=== PATIENT | female | born 1945 | race Hispanic/Latino ===

== ENCOUNTER 2019-04-27 18:47 | Emergency (ER) | payer MEDICARE ==
[~2019-04-27 18:47] MED LIST: LISI1TAB11 PO
[2019-04-27] MEDS ORDERED: SODIUM CHLORIDE 0.9% 1000ML 1,000 ML IV ONE ×2 (19:31→20:21)
[2019-04-27 19:53] LABS: BASOPHILS % (AUTO) 0.5 % (0.0-5.0); EOSINOPHILS % (AUTO) 1.9 % (0.0-8.0); HEMATOCRIT 40.7 % (36-48); LYMPHOCYTES % (AUTO) 20.6 % (21.0-51.0); MEAN CORPUSCULAR HEMOGLOBIN 30.9 pg (27.0-33.0); MEAN CORPUSCULAR HGB CONC 34.2 g/dL (32.0-36.0); MEAN CORPUSCULAR VOLUME 90.3 fL (79-99); MONOCYTES % (AUTO) 7.9 % (3.0-13.0); NEUTROPHILS % (AUTO) 69.1 % (40.0-77.0); PLATELET COUNT (AUTO) 162 K/uL (130-400); RED BLOOD CELL COUNT(AUTO) 4.51 MIL/uL (4.00-5.50); RED CELL DISTRIBUTION WIDTH 13.6 % (11.0-15.5); WHITE BLOOD COUNT (AUTO) 6.2 K/uL (4.8-10.8)
[2019-04-27] MEDS ORDERED: ACETAMINOPHEN 325 MG TAB ONE (19:54)
[2019-04-27 20:00] LABS: CREATININE 1.5 mg/dL (0.5-1.5); INR 0.94 (0.85-1.15); PARTIAL THROMBOPLASTIN TIME 24.5 SEC (26.3-35.5); POTASSIUM 3.7 mmol/L (3.5-5.1); PROTHROMBIN TIME 9.9 SEC (9.6-11.6)
[2019-04-27 20:05] LABS: ALBUMIN 3.9 g/dL (3.5-5.0); BILIRUBIN,TOTAL 0.6 mg/dL (0.2-1.0); TOTAL PROTEIN, SERUM 7.2 g/dL (6.0-8.3)
== END 2019-04-27 23:36 | disposition home or self-care (01) ==
LOC: EDH 18:47
DX: R55 Syncope and collapse (principal); I10 Essential (primary) hypertension; M81.0 Age-related osteoporosis without current pathological fracture; F41.9 Anxiety disorder, unspecified
CPT/HCPCS: 36415; 80053; 82550; 84484; 85025; 85610; 85730; 93005; 96360; 96361; 99285; J7030 ×2

== ENCOUNTER 2019-08-09 20:39 | Emergency (ER) | payer MEDICARE ==
[~2019-08-09 20:39] MED LIST changes: -LISI1TAB11 PO; +LISI1TAB28 PO
[2019-08-09 21:06] LABS: APPEARANCE,URINE Clear (CLEAR); BILIRUBIN,URINE Negative (NEGATIVE); COLOR,URINE Yellow (YELLOW); GLUCOSE, URINE (UA) Negative (NEGATIVE); KETONES,URINE Negative (NEGATIVE); LEUKOCYTE ESTERASE ,URINE Negative (NEGATIVE); NITRATE,URINE Negative (NEGATIVE); OCCULT BLOOD,URINE Negative (NEGATIVE); PROTEIN,URINE POS 1+ mg/dL (NEGATIVE)
[2019-08-09 21:23] LABS: BASOPHILS % (AUTO) 0.6 % (0.0-5.0); HEMATOCRIT 41.9 % (36-48); LYMPHOCYTES % (AUTO) 21.9 % (21.0-51.0); MEAN CORPUSCULAR HEMOGLOBIN 30.5 pg (27.0-33.0); MEAN CORPUSCULAR HGB CONC 34.2 g/dL (32.0-36.0); MEAN CORPUSCULAR VOLUME 89.2 fL (79-99); MONOCYTES % (AUTO) 6.4 % (3.0-13.0); NEUTROPHILS % (AUTO) 69.1 % (40.0-77.0); PLATELET COUNT (AUTO) 171 K/uL (130-400); RED CELL DISTRIBUTION WIDTH 13.9 % (11.0-15.5); WHITE BLOOD COUNT (AUTO) 7.7 K/uL (4.8-10.8)
[2019-08-09] MEDS ORDERED: SODIUM CHLORIDE 0.9% 1000ML 2,000 ML IV ONE (21:39)
[2019-08-09] MEDS ORDERED: MORPHINE SULFATE 4 MG/1ML SYG ONE ×2 (21:40→22:17)
[2019-08-09] MEDS ORDERED: ONDANSETRON HCL 4 MG/2 ML VIAL ONE (21:40)
[2019-08-09 21:44] LABS: CREATININE 0.9 mg/dL (0.5-1.5)
[2019-08-09 21:44] LABS: BACTERIA,URINE Few /HPF (None Seen); RBC,URINE 0-1 /HPF (0-1); SQUAMOUS EPITHELIAL CELL,UR Few /HPF (0-2); WBC,URINE 0-1 /HPF (0-1)
[2019-08-09 21:48] LABS: ALBUMIN 3.8 g/dL (3.5-5.0); BILIRUBIN,TOTAL 0.4 mg/dL (0.2-1.0); TOTAL PROTEIN, SERUM 7.6 g/dL (6.0-8.3)
[2019-08-10] MEDS ORDERED: ONDANSETRON HCL 4 MG/2 ML VIAL ONE (00:08)
[2019-08-10] MEDS ORDERED: MORPHINE SULFATE 2 MG/ML 1ML SYG ONE (00:08)
== END 2019-08-10 00:44 | disposition home or self-care (01) ==
LOC: EDH 20:39
DX: K80.70 Calculus of gallbladder and bile duct without cholecystitis without obstruction (principal); I10 Essential (primary) hypertension
CPT/HCPCS: 36415; 71045; 74176; 76705; 80053; 81001; 83690; 84484; 85025; 93005; 96374; 96375; 96376 ×2; 99285; J2270 ×2; J2405 ×2; J7030

== ENCOUNTER 2019-08-14 12:23 | Inpatient (IN) | payer MEDICARE ==
[~2019-08-14] VITALS: Ht 152.4 cm; Wt 78.0 kg
[2019-08-14 13:17] LABS: CARBON DIOXIDE 25 mmol/L (21-32); CHLORIDE 101 mmol/L (101-111); GLOMERULAR FILTR. RATE CALC 58 mL/min (>60); GLUCOSE,RANDOM 119 mg/dL (70-105); POTASSIUM 3.5 mmol/L (3.5-5.1); SODIUM SERUM 135 mmol/L (136-145); UREA NITROGEN, BLOOD 22 mg/dL (7-18)
[2019-08-14 13:18] LABS: BASOPHILS % (AUTO) 0.2 % (0.0-5.0); EOSINOPHILS % (AUTO) 0.2 % (0.0-8.0); HEMATOCRIT 35.5 % (36-48); LYMPHOCYTES % (AUTO) 1.4 % (21.0-51.0); MEAN CORPUSCULAR HEMOGLOBIN 30.2 pg (27.0-33.0); MEAN CORPUSCULAR HGB CONC 33.5 g/dL (32.0-36.0); MEAN CORPUSCULAR VOLUME 90.3 fL (79-99); MONOCYTES % (AUTO) 5.4 % (3.0-13.0); NEUTROPHILS % (AUTO) 92.8 % (40.0-77.0); PLATELET COUNT (AUTO) 161 K/uL (130-400); RED BLOOD CELL COUNT(AUTO) 3.93 MIL/uL (4.00-5.50); RED CELL DISTRIBUTION WIDTH 13.5 % (11.0-15.5)
[2019-08-14 13:21] LABS: INR 0.95 (0.85-1.15); PARTIAL THROMBOPLASTIN TIME 28.3 SEC (26.3-35.5)
[2019-08-14 13:36] LABS: ALANINE AMINOTRANSFERASE 58 U/L (12-78); ALBUMIN 2.2 g/dL (3.5-5.0); AMYLASE 20 U/L (25-115); ASPARTATE AMINOTRANSFERASE 43 U/L (10-37); BILIRUBIN,TOTAL 2.5 mg/dL (0.2-1.0); CREATINE KINASE, TOTAL 20 U/L (21-232); TOTAL PROTEIN, SERUM 6.4 g/dL (6.0-8.3)
[2019-08-14 13:45] LABS: LIPASE < 50 U/L (114-286)
[2019-08-14 13:46] LABS: APPEARANCE,URINE Clear (CLEAR); BILIRUBIN,URINE Negative (NEGATIVE); COLOR,URINE Dark Yellow (YELLOW); GLUCOSE, URINE (UA) Negative (NEGATIVE); KETONES,URINE Negative (NEGATIVE); LEUKOCYTE ESTERASE ,URINE Negative (NEGATIVE); NITRATE,URINE Negative (NEGATIVE); OCCULT BLOOD,URINE Negative (NEGATIVE); PROTEIN,URINE POS 2+ mg/dL (NEGATIVE)
[2019-08-14 14:06] LABS: BACTERIA,URINE Few /HPF (None Seen); RBC,URINE 0-1 /HPF (0-1); WBC,URINE 0-1 /HPF (0-1)
[2019-08-14 14:07] LABS: AMORPHOUS SEDIMENT,UR Moderate /LPF (None Seen)
[2019-08-14] MEDS ORDERED: ZOSYN 3.375GM+NS 50ML 50 ML IV ONE (15:42)
[2019-08-14] MEDS ORDERED: ASPIRIN 325 MG TABLET ONE (15:42)
[2019-08-14] MEDS ORDERED: NITROGLYCERIN 1GM/1 INCH PACKET TD ONE (15:43)
[2019-08-14] MEDS ORDERED: METRONIDAZOLE 500MG/100ML BAG 100 ML ONE (15:43)
[2019-08-14] MEDS ORDERED: SODIUM CHLORIDE 0.9% 500ML 500 ML IV ONE (15:47)
[2019-08-14] MEDS: SODIUM CHLORIDE 0.9% 1000ML 1,000 ML IV SCH (19:37)
[2019-08-14] MEDS ORDERED: LACTULOSE 20 GM/30 ML UDCUP PO PRN (19:45)
[2019-08-14] MEDS ORDERED: ONDANSETRON HCL 4 MG/2 ML VIAL IV PRN (19:45)
[2019-08-14] MEDS ORDERED: ACETAMINOPHEN 325 MG TAB PO PRN (19:45)
[2019-08-14] MEDS ORDERED: CEFTRIAXONE SODIUM 1 GM IV SCH (19:45)
[2019-08-14] MEDS: ATORVASTATIN CALCIUM 20 MG TABLET PO SCH (21:00)
[2019-08-14] MEDS: METOPROLOL TARTRATE 25 MG TAB PO SCH (21:00)
[2019-08-14] MEDS: FAMOTIDINE/PF 20 MG/2 ML VIAL IV SCH (21:00)
[2019-08-14] MEDS: ZOSYN 3.375GM+NS 50ML 50 ML IV SCH (21:00)
[2019-08-14] MEDS ORDERED: HYDRALAZINE HCL 20 MG/ML VIAL IV PRN (21:00)
[2019-08-14 22:15] LABS: HEMOGLOBIN A1C 5.8 % (4.0-6.0)
[2019-08-14 22:22] LABS: CHOLESTEROL 87 mg/dL (<200); HDL CHOLESTEROL 74 mg/dL (35-85); LDL DIRECT 48 mg/dL (0-99); TRIGLYCERIDES 107 mg/dL (30-200)
[2019-08-14 22:26] LABS: TROPONIN I 0.51 ng/mL (0.00-0.06)
[2019-08-15] MEDS ORDERED: METOPROLOL TARTRATE 25 MG TAB ONE (00:04)
[2019-08-15] MEDS ORDERED: CEFTRIAXONE SODIUM 1 GM ONE (00:04)
[2019-08-15] MEDS ORDERED: ATORVASTATIN CALCIUM 20 MG TABLET ONE (00:04)
[2019-08-15] MEDS ORDERED: SODIUM CHLORIDE 0.9% 50 ML IV ONE (00:05)
[2019-08-15] MEDS ORDERED: SODIUM CHLORIDE 0.9% 1000ML 1,000 ML IV ONE (00:05)
[2019-08-15 00:30] VITALS: BP 117/66
[2019-08-15] MEDS ORDERED: TYL3B PO (01:20)
[2019-08-15] MEDS ORDERED: ONDA4TAB10 PO (01:20)
--- NOTE | 2019-08-15 01:57 | NUR ---
FLU/ PNEUMONIA VACCINE PATIENT REFUSES VACCINE AT THIS TIME. SAYS SHE WILL GET THE VACCINES WITH HER PRIMARY MD AFTER DISCHARGE.
[2019-08-15 02:59] LABS: TROPONIN I 0.28 ng/mL (0.00-0.06)
[2019-08-15 04:50] VITALS: BP 129/66
[2019-08-15] MEDS: ZOSYN 3.375GM+NS 50ML 50 ML IV SCH ×3 (05:08→20:59)
[2019-08-15] MEDS: SODIUM CHLORIDE 0.9% 1000ML 1,000 ML IV SCH ×2 (05:37→15:21)
[2019-08-15 08:22] VITALS: BP 112/50
[2019-08-15] MEDS ORDERED: ASPIRIN 325 MG TABLET PO SCH (09:00)
[2019-08-15] MEDS: ENOXAPARIN SODIUM 30 MG/0.3 ML SQ SCH (09:00)
[2019-08-15] MEDS: FAMOTIDINE/PF 20 MG/2 ML VIAL IV SCH ×2 (09:38→21:00)
[2019-08-15] MEDS: METOPROLOL TARTRATE 25 MG TAB PO SCH ×2 (09:38→21:00)
--- NOTE | 2019-08-15 10:30 | NUR ---
Nutrition Intervention: Nutrition consult due to poor appetite. Pt. not in room during RD visit- out for procedure. Pt. NPO for MRCP. Labs reviewed(Alb 2.2, T. Bili 2.5, Alk Phos 253). LBM: 08/14/19. SR-felipa Pardo. BMI: 28.4, overweight. Recommendations: 1) When medically feasible, rec. Clear Liquids and advance as tolerated to Heart Healthy GI Soft [place] diet. 2) Continue to monitor pt's nutritional status and diet advancement. 3) Consult RD as nutrition concerns arise. Addendum: 08/15/19 at [address] Amended: Links added.
[2019-08-15 12:00] VITALS: BP 125/76
--- NOTE | 2019-08-15 15:45 | NUR ---
DCP CM met with pt discussed dc plans. Pt is independent prior to admission, lives at home w/spouse. Has a walker. Pt has a walker, shower chair, cane. Denies any equipments/services. Feels safe to go back home, spouse and daughter able to assist with transportation and needs as necessary. DC plan to home once stable. CM to cont to follow up. Addendum: 08/15/19 at 1546 by GABE STANLEY LVN CM Amended: Links added.
[2019-08-15 16:29] VITALS: BP 147/69
[2019-08-15 20:00] VITALS: BP 141/68
[2019-08-15] MEDS: ATORVASTATIN CALCIUM 20 MG TABLET PO SCH (21:00)
[2019-08-16] VITALS (25 sets, daily range): BP systolic 106–159; BP diastolic 56–77
[2019-08-16] MEDS: SODIUM CHLORIDE 0.9% 1000ML 1,000 ML IV SCH ×3 (03:47→21:24)
[2019-08-16] MEDS: ZOSYN 3.375GM+NS 50ML 50 ML IV SCH (04:31)
[2019-08-16 06:08] LABS: BASOPHILS % (AUTO) 0.4 % (0.0-5.0); EOSINOPHILS % (AUTO) 0.9 % (0.0-8.0); HEMATOCRIT 31.4 % (36-48); LYMPHOCYTES % (AUTO) 4.9 % (21.0-51.0); MEAN CORPUSCULAR HEMOGLOBIN 30.1 pg (27.0-33.0); MEAN CORPUSCULAR HGB CONC 33.7 g/dL (32.0-36.0); MEAN CORPUSCULAR VOLUME 89.4 fL (79-99); MONOCYTES % (AUTO) 11.8 % (3.0-13.0); PLATELET COUNT (AUTO) 191 K/uL (130-400); RED BLOOD CELL COUNT(AUTO) 3.51 MIL/uL (4.00-5.50); RED CELL DISTRIBUTION WIDTH 14.2 % (11.0-15.5); WHITE BLOOD COUNT (AUTO) 10.4 K/uL (4.8-10.8)
[2019-08-16 06:26] LABS: ALBUMIN 1.7 g/dL (3.5-5.0); BILIRUBIN,TOTAL 2.3 mg/dL (0.2-1.0); POTASSIUM 3.2 mmol/L (3.5-5.1); TOTAL PROTEIN, SERUM 5.6 g/dL (6.0-8.3)
[2019-08-16] MEDS ORDERED: IOHEXOL-350 50ML VIAL IV ONE (07:11)
[2019-08-16] MEDS ORDERED: SUCCINYLCHOLINE 200MG/10ML SYR ONE (07:25)
[2019-08-16] MEDS ORDERED: SIMETHICONE 40 MG/0.6 ML ML ONE (07:42)
[2019-08-16] MEDS ORDERED: ESMOLOL HCL 10 MG/ML 10 ML VIAL ONE (07:59)
[2019-08-16] MEDS ORDERED: GLUCAGON 1MG KIT 1 MG ML ONE (07:59)
[2019-08-16] MEDS ORDERED: INDOMETHACIN 50 MG SUPP.RECT RC SCH (08:45)
[2019-08-16] MEDS: ENOXAPARIN SODIUM 30 MG/0.3 ML SQ SCH (09:00)
--- NOTE | 2019-08-16 10:54 | NUR ---
INFORMED DR. JOHNSON FINDINGS FROM ERCP. NEW ORDERS TO SCHEDULE CHOLECYTOMY FOR SUNDAY BY DR. NARAYAN. FAMILY INFORMED. CHARGE NURSE WAS INFORMED PER FAMILY REQUEST TO SPEAK WITH THEM.
[2019-08-16] MEDS: CEFTRIAXONE SODIUM 2 GM VIAL IVP SCH (12:47)
[2019-08-16] MEDS: METOPROLOL TARTRATE 25 MG TAB PO SCH ×2 (12:48→21:26)
[2019-08-16] MEDS: FAMOTIDINE/PF 20 MG/2 ML VIAL IV SCH ×2 (12:48→21:26)
[2019-08-16] MEDS ORDERED: LIDOCAINE HCL-MPF 1% 2ML VIAL IJ PRN (19:30)
[2019-08-16] MEDS ORDERED: POTASSIUM CHLORIDE 10% ELIXIR 20 MEQ/15 ML UDCUP PO PRN (19:30)
[2019-08-16] MEDS ORDERED: POTASSIUM CHLORIDE 20 MEQ ERTAB PO PRN (19:30)
[2019-08-16] MEDS: POTASSIUM CHLORIDE 20MEQ/100ML 100 ML IV PRN (21:24)
[2019-08-16] MEDS: ATORVASTATIN CALCIUM 20 MG TABLET PO SCH (21:26)
[2019-08-17 03:35] VITALS: BP 123/62
[2019-08-17] MEDS: SODIUM CHLORIDE 0.9% 1000ML 1,000 ML IV SCH ×2 (06:08→17:23)
[2019-08-17 06:18] LABS: BASOPHILS % (AUTO) 0.3 % (0.0-5.0); HEMATOCRIT 31.8 % (36-48); LYMPHOCYTES % (AUTO) 4.9 % (21.0-51.0); MEAN CORPUSCULAR HEMOGLOBIN 30.2 pg (27.0-33.0); MEAN CORPUSCULAR HGB CONC 33.9 g/dL (32.0-36.0); MEAN CORPUSCULAR VOLUME 89.3 fL (79-99); MONOCYTES % (AUTO) 11.3 % (3.0-13.0); NEUTROPHILS % (AUTO) 82.5 % (40.0-77.0); PLATELET COUNT (AUTO) 239 K/uL (130-400); RED BLOOD CELL COUNT(AUTO) 3.57 MIL/uL (4.00-5.50); RED CELL DISTRIBUTION WIDTH 14.3 % (11.0-15.5); WHITE BLOOD COUNT (AUTO) 9.4 K/uL (4.8-10.8)
[2019-08-17 06:36] LABS: ALBUMIN 1.7 g/dL (3.5-5.0); BILIRUBIN,TOTAL 1.5 mg/dL (0.2-1.0); CREATININE 0.9 mg/dL (0.5-1.5); POTASSIUM 3.6 mmol/L (3.5-5.1); TOTAL PROTEIN, SERUM 5.7 g/dL (6.0-8.3)
[2019-08-17 07:30] VITALS: BP 134/54
--- NOTE | 2019-08-17 07:30 | NUR ---
CRITICAL HATHAWAY CUT PRESS OPERATOR AWARE OF ALKALINE PHOSPHATASE CRITICAL VALUE OF 674. NO NEW ORDERS RECEIVED.
[2019-08-17] MEDS: METOPROLOL TARTRATE 25 MG TAB PO SCH ×2 (10:18→23:10)
[2019-08-17] MEDS: FAMOTIDINE/PF 20 MG/2 ML VIAL IV SCH ×2 (10:18→23:10)
[2019-08-17] MEDS: CEFTRIAXONE SODIUM 2 GM VIAL IVP SCH (10:18)
[2019-08-17 11:00] VITALS: BP 146/72
--- NOTE | 2019-08-17 11:59 | NUR ---
DR ELIZABETH DALTON. WAITING PROTOCOL OFFICER BACK.
--- NOTE | 2019-08-17 12:20 | NUR ---
DR JOHNSON CALLED BACK. AWARE OF CRITICAL VALUE. NO NEW ORDERS RECEIVED.
[2019-08-17 16:00] VITALS: BP 139/58
[2019-08-17 19:10] VITALS: BP 147/87
[2019-08-17 23:05] VITALS: BP 157/80
[2019-08-17] MEDS: ATORVASTATIN CALCIUM 20 MG TABLET PO SCH (23:10)
[2019-08-18] VITALS (19 sets, daily range): BP systolic 98–192; BP diastolic 50–78
[2019-08-18] MEDS: SODIUM CHLORIDE 0.9% 1000ML 1,000 ML IV SCH ×2 (05:44→23:37)
[2019-08-18 05:59] LABS: BASOPHILS % (AUTO) 0.5 % (0.0-5.0); EOSINOPHILS % (AUTO) 1.1 % (0.0-8.0); LYMPHOCYTES % (AUTO) 7.5 % (21.0-51.0); MEAN CORPUSCULAR HEMOGLOBIN 30.2 pg (27.0-33.0); MONOCYTES % (AUTO) 10.6 % (3.0-13.0); NEUTROPHILS % (AUTO) 80.3 % (40.0-77.0); PLATELET COUNT (AUTO) 239 K/uL (130-400); RED BLOOD CELL COUNT(AUTO) 3.49 MIL/uL (4.00-5.50); RED CELL DISTRIBUTION WIDTH 14.5 % (11.0-15.5); WHITE BLOOD COUNT (AUTO) 9.8 K/uL (4.8-10.8)
[2019-08-18 06:18] LABS: ALBUMIN 1.6 g/dL (3.5-5.0); BILIRUBIN,TOTAL 0.7 mg/dL (0.2-1.0); CREATININE 0.8 mg/dL (0.5-1.5); POTASSIUM 3.2 mmol/L (3.5-5.1); TOTAL PROTEIN, SERUM 5.5 g/dL (6.0-8.3)
[2019-08-18 06:42] LABS: INR 0.92 (0.85-1.15); PROTHROMBIN TIME 9.5 SEC (9.6-11.6)
[2019-08-18] MEDS ORDERED: BUPIVACAINE/PF 0.5% 10ML VIAL ONE (08:43)
[2019-08-18] MEDS: FAMOTIDINE/PF 20 MG/2 ML VIAL IV SCH ×2 (09:00→20:53)
[2019-08-18] MEDS: METOPROLOL TARTRATE 25 MG TAB PO SCH ×2 (09:39→20:53)
[2019-08-18] MEDS: POTASSIUM CHLORIDE 20MEQ/100ML 100 ML IV PRN (09:40)
[2019-08-18] MEDS: CEFTRIAXONE SODIUM 2 GM VIAL IVP SCH (09:50)
[2019-08-18] MEDS ORDERED: MIDAZOLAM HCL 1 MG/ML 2ML VIAL ONE (10:11)
[2019-08-18] MEDS ORDERED: DEXAMETHASONE SOD PHOSPHATE 10MG/ML 1ML VIAL ONE (10:11)
[2019-08-18] MEDS ORDERED: LIDOCAINE PF 2% 5ML ABBOJECT ONE (10:11)
[2019-08-18] MEDS ORDERED: SUCCINYLCHOLINE 200MG/10ML SYR ONE (10:11)
[2019-08-18] MEDS ORDERED: GLYCOPYRROLATE 1 MG/5 ML SYRINGE ONE (10:12)
[2019-08-18] MEDS ORDERED: ONDANSETRON HCL 4 MG/2 ML VIAL ONE (10:12)
[2019-08-18] MEDS ORDERED: ROCURONIUM 10MG/1ML SYR 10 MG/ML ML ONE (10:12)
[2019-08-18] MEDS ORDERED: PROPOFOL 10 MG/ML 20ML VIAL IV ONE (10:12)
[2019-08-18] MEDS ORDERED: FENTANYL CITRATE PF 50 MCG/1 ML 2ML VIAL ONE (10:12)
[2019-08-18] MEDS ORDERED: NEOSTIGMINE 5MG/5ML SYR IV ONE (10:12)
[2019-08-18] MEDS ORDERED: IOHEXOL-350 50ML VIAL IV ONE (10:31)
[2019-08-18] MEDS: LACTATED RINGERS 1000ML 1,000 ML IV SCH (11:40)
[2019-08-18] MEDS ORDERED: MORPHINE SULFATE 2 MG/ML 1ML SYG IVP PRN (16:45)
[2019-08-18] MEDS ORDERED: MORPHINE SULFATE 2 MG/ML 1ML SYG IVP ONE (16:45)
[2019-08-18] MEDS: ATORVASTATIN CALCIUM 20 MG TABLET PO SCH (20:53)
[2019-08-18] MEDS: ACETAMINOPHEN 325 MG TAB PO PRN (20:53)
[2019-08-19] MEDS: ACETAMINOPHEN 325 MG TAB PO PRN (01:55)
[2019-08-19] MEDS: LACTATED RINGERS 1000ML 1,000 ML IV SCH ×2 (01:56→14:20)
[2019-08-19 03:40] VITALS: BP 128/57
[2019-08-19 06:05] LABS: BASOPHILS % (AUTO) 0.1 % (0.0-5.0); HEMATOCRIT 31.6 % (36-48); MEAN CORPUSCULAR HEMOGLOBIN 29.5 pg (27.0-33.0); MEAN CORPUSCULAR HGB CONC 33.1 g/dL (32.0-36.0); MEAN CORPUSCULAR VOLUME 89.2 fL (79-99); MONOCYTES % (AUTO) 6.3 % (3.0-13.0); NEUTROPHILS % (AUTO) 90.6 % (40.0-77.0); PLATELET COUNT (AUTO) 276 K/uL (130-400); RED BLOOD CELL COUNT(AUTO) 3.54 MIL/uL (4.00-5.50); RED CELL DISTRIBUTION WIDTH 14.4 % (11.0-15.5); WHITE BLOOD COUNT (AUTO) 18.7 K/uL (4.8-10.8)
[2019-08-19 06:36] LABS: ALBUMIN 1.5 g/dL (3.5-5.0); BILIRUBIN,DIRECT 0.3 mg/dL (0.0-0.3); BILIRUBIN,TOTAL 0.7 mg/dL (0.2-1.0); CREATININE 0.9 mg/dL (0.5-1.5); POTASSIUM 3.9 mmol/L (3.5-5.1); TOTAL PROTEIN, SERUM 5.4 g/dL (6.0-8.3)
[2019-08-19 08:00] VITALS: BP 128/55
[2019-08-19] MEDS: METOPROLOL TARTRATE 25 MG TAB PO SCH ×2 (08:55→21:24)
[2019-08-19] MEDS: FAMOTIDINE/PF 20 MG/2 ML VIAL IV SCH ×2 (08:56→21:24)
[2019-08-19] MEDS: CEFTRIAXONE SODIUM 2 GM VIAL IVP SCH (08:59)
[2019-08-19] MEDS: SODIUM CHLORIDE 0.9% 1000ML 1,000 ML IV SCH (09:37)
[2019-08-19 12:00] VITALS: BP 126/61
[2019-08-19] MEDS: TRAMADOL HCL 50 MG TABLET PO PRN ×2 (13:53→23:57)
[2019-08-19 16:00] VITALS: BP 123/60
--- NOTE | 2019-08-19 18:15 | NUR ---
NOTIFIED FISH RECEIVER NI ON ORDER FOR ERCP WITH DR CARLTON FOR TOMORROW ,CONFIRMED AND FAXED ORDER TO [facility]
[2019-08-19 19:20] VITALS: BP_SYST 122; BP_SYST 132; BP_DIAS 63; BP_DIAS 66
[2019-08-19 23:20] VITALS: BP 132/66
[2019-08-20] VITALS (24 sets, daily range): BP systolic 106–138; BP diastolic 49–89
[2019-08-20] MEDS: LACTATED RINGERS 1000ML 1,000 ML IV SCH (04:13)
[2019-08-20 05:45] LABS: BASOPHILS % (AUTO) 0.1 % (0.0-5.0); EOSINOPHILS % (AUTO) 0.5 % (0.0-8.0); HEMATOCRIT 28.9 % (36-48); MEAN CORPUSCULAR HEMOGLOBIN 29.5 pg (27.0-33.0); MEAN CORPUSCULAR HGB CONC 33.3 g/dL (32.0-36.0); MEAN CORPUSCULAR VOLUME 88.7 fL (79-99); MONOCYTES % (AUTO) 5.3 % (3.0-13.0); NEUTROPHILS % (AUTO) 92.1 % (40.0-77.0); PLATELET COUNT (AUTO) 298 K/uL (130-400); RED BLOOD CELL COUNT(AUTO) 3.25 MIL/uL (4.00-5.50); RED CELL DISTRIBUTION WIDTH 14.3 % (11.0-15.5)
[2019-08-20 05:52] LABS: ALBUMIN 1.3 g/dL (3.5-5.0); BILIRUBIN,TOTAL 0.4 mg/dL (0.2-1.0); CREATININE 0.8 mg/dL (0.5-1.5); POTASSIUM 3.6 mmol/L (3.5-5.1); TOTAL PROTEIN, SERUM 4.9 g/dL (6.0-8.3)
[2019-08-20] MEDS: FAMOTIDINE/PF 20 MG/2 ML VIAL IV SCH ×2 (08:42→20:44)
[2019-08-20] MEDS: METOPROLOL TARTRATE 25 MG TAB PO SCH ×2 (08:51→20:44)
[2019-08-20] MEDS: CEFTRIAXONE SODIUM 2 GM VIAL IVP SCH (08:52)
[2019-08-20] MEDS ORDERED: ENOXAPARIN SODIUM 40 MG/0.4 ML SYRINGE SQ SCH (10:00)
[2019-08-20] MEDS ORDERED: IOHEXOL-350 50ML VIAL IV ONE (10:59)
--- NOTE | 2019-08-20 11:16 | NUR ---
10:42- PATIENT IS READY TO BE OFFSET LITHOGRAPHIC PRESS SETTER FOR PROCEDURE.WILL ATTEMPT PT EVALUATION LATER THIS PM OR BY TOMORROW. Addendum: 08/20/19 at 1117 by MOUNA ROSS, PT PT Amended: Links added.
[2019-08-20] MEDS ORDERED: INDOMETHACIN 50 MG SUPP.RECT RC SCH (11:30)
[2019-08-20] MEDS ORDERED: PROPOFOL 10 MG/ML 20ML VIAL IV ONE (11:34)
[2019-08-20] MEDS ORDERED: SUCCINYLCHOLINE 200MG/10ML SYR ONE (11:34)
[2019-08-20] MEDS ORDERED: GLUCAGON 1MG KIT 1 MG ML ONE (11:46)
[2019-08-20] MEDS ORDERED: EPINEPHRINE 1 MG/ML AMPULE ONE (11:55)
--- NOTE | 2019-08-20 15:13 | NUR ---
RD NOTIFICATION/ FOLLOW UP S/P GALLSTONES REMOVAL. PT CURRENTLY RECOVERING FROM SURGERY. DIET: HEART HEALTHY, HOWEVER NPO FOR NOW DUE TO PROCEDURE. PT STATED SHE IS CURRENTLY HAVING ABDOMINAL PAIN DURING TIME OF VISIT. PO INTAKE IS POOR PER PT AND FAMILY. PT IS UNABLE TO HAVE A BM X 3DAYS NOW. RD RECOMMENDS CONTINUE CURRENT DIET. ADVANCE DIET TOLERATED WHEN MEDICALLY FEASIBLE TO CLEAR LIQUIDS, THEN FULL LIQUIDS TOLERATED. LASTLY ADVANCE TO, HEART HEALTHY AND LOW FAT DIET. RD WILL CONTINUE TO MONITOR AND FOLLOW UP NEEDED. Addendum: 08/20/19 at [address] Amended: Links added.
[2019-08-21 03:05] VITALS: BP 112/53
[2019-08-21 05:11] LABS: HEMATOCRIT 27.1 % (36-48); MEAN CORPUSCULAR HEMOGLOBIN 29.4 pg (27.0-33.0); MEAN CORPUSCULAR HGB CONC 32.9 g/dL (32.0-36.0); MEAN CORPUSCULAR VOLUME 89.3 fL (79-99); PLATELET COUNT (AUTO) 302 K/uL (130-400); RED BLOOD CELL COUNT(AUTO) 3.03 MIL/uL (4.00-5.50); RED CELL DISTRIBUTION WIDTH 14.7 % (11.0-15.5); WHITE BLOOD COUNT (AUTO) 16.8 K/uL (4.8-10.8)
[2019-08-21 05:32] LABS: ALBUMIN 1.2 g/dL (3.5-5.0); BILIRUBIN,DIRECT 0.1 mg/dL (0.0-0.3); BILIRUBIN,TOTAL 0.4 mg/dL (0.2-1.0); CREATININE 0.7 mg/dL (0.5-1.5); TOTAL PROTEIN, SERUM 4.7 g/dL (6.0-8.3)
[2019-08-21 07:00] VITALS: BP 147/66
[2019-08-21] MEDS: CEFTRIAXONE SODIUM 2 GM VIAL IVP SCH (09:33)
[2019-08-21] MEDS: METOPROLOL TARTRATE 25 MG TAB PO SCH ×2 (09:33→21:28)
[2019-08-21] MEDS: FAMOTIDINE/PF 20 MG/2 ML VIAL IV SCH ×2 (09:33→21:28)
[2019-08-21] MEDS ORDERED: ENOXAPARIN SODIUM 40 MG/0.4 ML SYRINGE SQ SCH (10:00)
[2019-08-21] MEDS ORDERED: TRAM50TA4 PO (10:42)
[2019-08-21] MEDS: TRAMADOL HCL 50 MG TABLET PO PRN ×2 (13:51→21:28)
[2019-08-21 16:00] VITALS: BP 131/62
[2019-08-21 20:00] VITALS: BP 136/63
[2019-08-22] VITALS: BP 135/72
[2019-08-22 04:00] VITALS: BP 140/64
[2019-08-22 05:26] LABS: ALBUMIN 1.3 g/dL (3.5-5.0); BILIRUBIN,DIRECT 0.3 mg/dL (0.0-0.3); BILIRUBIN,TOTAL 0.4 mg/dL (0.2-1.0); TOTAL PROTEIN, SERUM 5.1 g/dL (6.0-8.3)
[2019-08-22 08:00] VITALS: BP 143/73
[2019-08-22] MEDS: FAMOTIDINE/PF 20 MG/2 ML VIAL IV SCH (10:22)
[2019-08-22] MEDS: METOPROLOL TARTRATE 25 MG TAB PO SCH (10:22)
[2019-08-22] MEDS: CEFTRIAXONE SODIUM 2 GM VIAL IVP SCH (10:22)
[2019-08-22 11:30] VITALS: BP 137/69
--- NOTE | 2019-08-22 14:38 | NUR ---
SARY DRAIN REMOVAL INTACT SARY DRAIN REMOVED WITH MINIMAL DISCOMFORT FROM PATIENT. SITE HAD LITTLE TO NO DRAINAGE. COVERED WITH GAUZE AND TEGADERM. PT TOLERATED WELL
--- NOTE | 2019-08-22 15:51 | NUR ---
PATIENT DISCHARGE PATIENT DISCHARGED, IV DISCONTINUED, BLEEDING CONTROLLED, CATHLON INTACT, PATIENT TOLERATED WITHOUT INCIDENT.
[2019-08-23] MEDS ORDERED: ENOXAPARIN SODIUM 40 MG/0.4 ML SYRINGE SQ SCH (10:00)
== END 2019-08-22 16:00 | disposition home or self-care (01) | DRG 854 ==
LOC: EDH 12:23 → EDHIP 19:37 → OBSVTOIN 19:37 → 3CH 08-15 00:30
PROVIDERS: ADMIT Internal Medicine; ATTEND Internal Medicine
PROC: 0FT44ZZ Resection of Gallbladder, Percutaneous Endoscopic Approach (ICD-10-PCS; principal; 2019-08-18 10:18)
PROC: 0F798DZ Dilation of Common Bile Duct with Intraluminal Device, Via Natural or Artificial Opening Endoscopic (ICD-10-PCS; 2019-08-20)
DX: A41.51 Sepsis due to Escherichia coli [E. coli] (principal); K80.66 Calculus of gallbladder and bile duct with acute and chronic cholecystitis without obstruction; I10 Essential (primary) hypertension; K82.A1 Gangrene of gallbladder in cholecystitis; E11.9 Type 2 diabetes mellitus without complications; K76.0 Fatty (change of) liver, not elsewhere classified; K82.8 Other specified diseases of gallbladder; M81.0 Age-related osteoporosis without current pathological fracture; K83.9 Disease of biliary tract, unspecified
CPT/HCPCS: 36415; 43235; 43274; 71045; 74176; 74181; 74330; 76705; 80048; 80053; 80061; 80076; 81001; 82150; 82550; 82948; 83036; 83605; 83690; 83874; 84484; 85025; 85027; 85610; 85730; 87040; 87077; 87186; 88304; 93005; 96365; 96366; 97039; A4344; A4606; C1769; C1773; C2617; G0378; J0171; J0330; J0360; J0696; J1100; J1610; J1650; J2001; J2250; J2405; J2543; J2704; J2710; J3010; J3480; J3490; J7030; J7040; J7120; Q9967

== ENCOUNTER 2019-09-29 03:01 | Emergency (ER) | payer MEDICARE ==
[~2019-09-29 03:01] MED LIST changes: +ONDA4TAB10 PO; +TRAM50TA4 PO
[2019-09-29] MEDS ORDERED: ONDANSETRON HCL 4 MG/2 ML VIAL ONE (03:29)
[2019-09-29] MEDS ORDERED: METOCLOPRAMIDE 10 MG/2 ML VIAL ONE (03:29)
[2019-09-29] MEDS ORDERED: SODIUM CHLORIDE 0.9% 1000ML 1,000 ML IV ONE (03:30)
[2019-09-29 03:35] LABS: BASOPHILS % (AUTO) 0.3 % (0.0-5.0); EOSINOPHILS % (AUTO) 2.8 % (0.0-8.0); HEMATOCRIT 38.3 % (36-48); LYMPHOCYTES % (AUTO) 19.2 % (21.0-51.0); MEAN CORPUSCULAR HEMOGLOBIN 29.4 pg (27.0-33.0); MEAN CORPUSCULAR HGB CONC 33.1 g/dL (32.0-36.0); MEAN CORPUSCULAR VOLUME 88.9 fL (79-99); MONOCYTES % (AUTO) 3.7 % (3.0-13.0); PLATELET COUNT (AUTO) 197 K/uL (130-400); RED BLOOD CELL COUNT(AUTO) 4.31 MIL/uL (4.00-5.50); RED CELL DISTRIBUTION WIDTH 15.6 % (11.0-15.5); WHITE BLOOD COUNT (AUTO) 10.1 K/uL (4.8-10.8)
[2019-09-29 03:40] LABS: CREATININE 0.9 mg/dL (0.5-1.5); POTASSIUM 3.4 mmol/L (3.5-5.1)
[2019-09-29 03:44] LABS: INR 0.94 (0.85-1.15); PROTHROMBIN TIME 9.9 SEC (9.6-11.6)
[2019-09-29 03:45] LABS: ALBUMIN 3.3 g/dL (3.5-5.0); BILIRUBIN,TOTAL 0.5 mg/dL (0.2-1.0); TOTAL PROTEIN, SERUM 7.6 g/dL (6.0-8.3)
[2019-09-29 04:11] LABS: APPEARANCE,URINE Clear (CLEAR); BILIRUBIN,URINE Negative (NEGATIVE); COLOR,URINE Yellow (YELLOW); GLUCOSE, URINE (UA) Negative (NEGATIVE); KETONES,URINE Negative (NEGATIVE); LEUKOCYTE ESTERASE ,URINE Negative (NEGATIVE); NITRATE,URINE Negative (NEGATIVE); OCCULT BLOOD,URINE Negative (NEGATIVE); PH,URINE 7.5 (5.0-8.0); PROTEIN,URINE POS 2+ mg/dL (NEGATIVE)
[2019-09-29 04:11] LABS: B-TYPE NATRIURETIC PEPTIDE 72 pg/mL (0-100)
[2019-09-29 04:26] LABS: RBC,URINE 0-1 /HPF (0-1); WBC,URINE 0-1 /HPF (0-1)
[2019-09-29 04:27] LABS: BACTERIA,URINE Few /HPF (None Seen)
== END 2019-09-29 05:58 | disposition home or self-care (01) ==
LOC: EDH 03:01
DX: I10 Essential (primary) hypertension (principal); R11.10 Vomiting, unspecified; E86.9 Volume depletion, unspecified; M81.0 Age-related osteoporosis without current pathological fracture; Z88.8 Allergy status to other drugs, medicaments and biological substances
CPT/HCPCS: 36415; 70450; 71045; 80053; 81001; 83605; 83690; 83880; 84484; 85025; 85610; 85730; 87804 ×2; 93005; 96361; 96374; 96375; 99285; J2405; J2765; J7030

== ENCOUNTER 2019-10-15 08:39 | Day surgery (SDC) | payer MEDICARE ==
[2019-10-15] VITALS (16 sets, daily range): BP systolic 139–189; BP diastolic 65–86
[~2019-10-15 08:39] MED LIST changes: +SODIUM CHLORIDE 0.9% 1000ML 1,000 ML IV ONE
[2019-10-15] MEDS ORDERED: INDOMETHACIN 50 MG SUPP.RECT RC SCH (11:15)
[2019-10-15] MEDS ORDERED: ALEN70TA2 PO (11:44)
[2019-10-15] MEDS ORDERED: IOHEXOL-350 50ML VIAL IV ONE (11:52)
[2019-10-15] MEDS ORDERED: PROPOFOL 10 MG/ML 20ML VIAL IV ONE (12:10)
[2019-10-15] MEDS ORDERED: SUCCINYLCHOLINE 200MG/10ML SYR ONE (12:10)
[2019-10-15] MEDS ORDERED: HYDRALAZINE HCL 20 MG/ML VIAL ONE ×2 (12:24→13:58)
[2019-10-15] MEDS ORDERED: FENTANYL CITRATE PF 50 MCG/1 ML 2ML VIAL ONE (12:24)
[2019-10-15] MEDS ORDERED: ONDANSETRON HCL 4 MG/2 ML VIAL ONE (12:36)
== END 2019-10-15 15:10 | disposition home or self-care (01) ==
LOC: ENDO 08:39 → DAH 08:39 → ENDO 15:10
PROVIDERS: ATTEND Internal Medicine Gastroenterology
DX: K82.8 Other specified diseases of gallbladder (principal); I10 Essential (primary) hypertension; F32.9 Major depressive disorder, single episode, unspecified; Z90.49 Acquired absence of other specified parts of digestive tract; Z79.899 Other long term (current) drug therapy
CPT/HCPCS: 43264; 43275; 74328; A4215; A4221; A4222; A4223; A4606; A4663; C1769; C1773; J0330; J0360 ×2; J2405; J2704; J3010; J7030; Q9967; 74330

== ENCOUNTER 2020-04-08 14:19 | Emergency (ER) | payer MEDICARE ==
[~2020-04-08 14:19] MED LIST changes: +ALEN70TA2 PO; -LISI1TAB28 PO; +LISI1TAB51 PO; -ONDA4TAB10 PO; -SODIUM CHLORIDE 0.9% 1000ML 1,000 ML IV ONE
[2020-04-08 15:18] LABS: BASOPHILS % (AUTO) 0.3 % (0.0-5.0); EOSINOPHILS % (AUTO) 2.4 % (0.0-8.0); HEMATOCRIT 37.7 % (36-48); LYMPHOCYTES % (AUTO) 14.4 % (21.0-51.0); MEAN CORPUSCULAR HEMOGLOBIN 29.6 pg (27.0-33.0); MEAN CORPUSCULAR HGB CONC 32.6 g/dL (32.0-36.0); MEAN CORPUSCULAR VOLUME 90.8 fL (79-99); MONOCYTES % (AUTO) 8.4 % (3.0-13.0); NEUTROPHILS % (AUTO) 74.2 % (40.0-77.0); PLATELET COUNT (AUTO) 202 K/uL (130-400); RED BLOOD CELL COUNT(AUTO) 4.15 MIL/uL (4.00-5.50); RED CELL DISTRIBUTION WIDTH 12.6 % (11.0-15.5); WHITE BLOOD COUNT (AUTO) 7.8 K/uL (4.8-10.8)
[2020-04-08] MEDS ORDERED: ONDANSETRON HCL 4 MG/2 ML VIAL ONE (15:19)
[2020-04-08] MEDS ORDERED: MORPHINE SULFATE 2 MG/ML 1ML SYG ONE (15:20)
[2020-04-08 15:24] LABS: INR 0.87 (0.85-1.15); PARTIAL THROMBOPLASTIN TIME 25.9 SEC (26.3-35.5); PROTHROMBIN TIME 9.4 SEC (9.6-11.6)
[2020-04-08 15:26] LABS: POTASSIUM 4.8 mmol/L (3.5-5.1)
[2020-04-08 15:33] LABS: ALBUMIN 3.3 g/dL (3.5-5.0); BILIRUBIN,TOTAL 0.4 mg/dL (0.2-1.0); TOTAL PROTEIN, SERUM 7.2 g/dL (6.0-8.3)
== END 2020-04-08 18:22 | disposition home or self-care (01) ==
LOC: EDH 14:19
DX: R10.9 Unspecified abdominal pain (principal); R11.10 Vomiting, unspecified; I10 Essential (primary) hypertension; M81.0 Age-related osteoporosis without current pathological fracture
CPT/HCPCS: 36415; 74176; 80053; 82150; 82550; 83690; 84484; 85025; 85610; 85730; 93005; 96374; 96375; 99285; J2405

== ENCOUNTER 2020-06-18 06:07 | Inpatient (IN) | payer MEDICARE ==
[~2020-06-18] VITALS: Ht 154.9 cm; Wt 113.9 kg
[2020-06-18 07:36] LABS: BASOPHILS % (AUTO) 0.6 % (0.0-5.0); EOSINOPHILS % (AUTO) 4.3 % (0.0-8.0); HEMATOCRIT 39.9 % (36-48); LYMPHOCYTES % (AUTO) 31.7 % (21.0-51.0); MEAN CORPUSCULAR HEMOGLOBIN 29.6 pg (27.0-33.0); MEAN CORPUSCULAR HGB CONC 32.8 g/dL (32.0-36.0); MEAN CORPUSCULAR VOLUME 90.1 fL (79-99); MONOCYTES % (AUTO) 6.8 % (3.0-13.0); NEUTROPHILS % (AUTO) 56.3 % (40.0-77.0); PLATELET COUNT (AUTO) 176 K/uL (130-400); RED BLOOD CELL COUNT(AUTO) 4.43 MIL/uL (4.00-5.50); RED CELL DISTRIBUTION WIDTH 12.9 % (11.0-15.5)
[2020-06-18 07:45] LABS: INR 0.9 (0.85-1.15); PROTHROMBIN TIME 9.8 SEC (9.6-11.6)
[2020-06-18 07:47] LABS: ALBUMIN 3.7 g/dL (3.5-5.0); BILIRUBIN,DIRECT 0.1 mg/dL (0.0-0.3); BILIRUBIN,TOTAL 0.4 mg/dL (0.2-1.0); CREATININE 1.1 mg/dL (0.5-1.5); TOTAL PROTEIN, SERUM 7.6 g/dL (6.0-8.3)
[2020-06-18 08:10] LABS: B-TYPE NATRIURETIC PEPTIDE 16 pg/mL (0-100)
[2020-06-18] MEDS ORDERED: ASPIRIN 325 MG TABLET ONE (14:03)
[2020-06-18] MEDS ORDERED: LACTULOSE 20 GM/30 ML UDCUP PO PRN (14:15)
[2020-06-18] MEDS ORDERED: HYDRALAZINE HCL 20 MG/ML VIAL IV PRN (14:15)
[2020-06-18] MEDS ORDERED: ONDANSETRON HCL 4 MG/2 ML VIAL IV PRN (14:15)
[2020-06-18] MEDS ORDERED: ACETAMINOPHEN 325 MG TAB PO PRN (14:15)
[2020-06-18] MEDS ORDERED: IOHEXOL-350 75 ML VIAL IV ONE (15:50)
[2020-06-18 16:01] LABS: HEMOGLOBIN A1C 6.3 % (4.0-6.0)
--- NOTE | 2020-06-18 16:53 | NUR ---
ATTEMPTED EVAL X3 Pt NOT AVAILABLE DUE TO PROCEDURE. EVALUATION TO BE COMPLETED TOMORROW. Addendum: 06/18/20 at 1655 by MATHIEU BOYCE, [facility] Amended: Links added.
[2020-06-18 17:26] VITALS: BP 157/78
--- NOTE | 2020-06-18 19:40 | NUR ---
PM Assessment Received pt awake in bed, routine assessment done, denies discomfort, requested if she can have a little water. Pt made aware I will go ahead & do a bedside swallow test, with thin liquid, apple juice as preferred, apple sauce & cracker, done & passed. Pt claimed she felt weak on ambulation, made aware that she is still pending PT evaluation with 2D Echo & CT angio head/neck tomorrow. Pt reminded to make sure to call for assistance to use the bathroom, BSC to be provided.
[2020-06-18 20:37] VITALS: BP 159/87
[2020-06-18] MEDS: ATORVASTATIN CALCIUM 20 MG TABLET PO SCH (20:50)
[2020-06-18] MEDS ORDERED: LISI1TAB51 PO (20:56)
[2020-06-18 23:26] VITALS: BP 107/61
--- NOTE | 2020-06-19 03:44 | NUR ---
Re: Ambulation Pt noted assisted by Shiloh VARELA using a walker to use the bathroom, at this time pt noted with left leg weakness. Pt then reminded the importance of calling for assistance when getting out of bed/ambulation, agreed.
[2020-06-19 04:07] VITALS: BP 92/52
[2020-06-19 06:33] LABS: POTASSIUM 3.7 mmol/L (3.5-5.1)
[2020-06-19 06:42] LABS: BASOPHILS % (AUTO) 0.4 % (0.0-5.0); EOSINOPHILS % (AUTO) 3.1 % (0.0-8.0); HEMATOCRIT 38.6 % (36-48); LYMPHOCYTES % (AUTO) 19.7 % (21.0-51.0); MEAN CORPUSCULAR HGB CONC 33.4 g/dL (32.0-36.0); MEAN CORPUSCULAR VOLUME 89.8 fL (79-99); MONOCYTES % (AUTO) 8.1 % (3.0-13.0); NEUTROPHILS % (AUTO) 68.1 % (40.0-77.0); PLATELET COUNT (AUTO) 195 K/uL (130-400); WHITE BLOOD COUNT (AUTO) 7.1 K/uL (4.8-10.8)
[2020-06-19] MEDS: ENOXAPARIN SODIUM 30 MG/0.3 ML SQ SCH (08:35)
[2020-06-19] MEDS ORDERED: ASPIRIN 81MG TAB.CHEW ONE (08:39)
[2020-06-19] MEDS: ASPIRIN 325 MG TABLET PO SCH (08:40)
[2020-06-19] MEDS ORDERED: ENOXAPARIN SODIUM 40 MG/0.4 ML SYRINGE SQ SCH (09:00)
[2020-06-19 10:21] VITALS: BP 107/59
[2020-06-19 12:01] VITALS: BP 124/71
--- NOTE | 2020-06-19 12:03 | NUR ---
SPOKE TO DAUGHTER LONG AND SHE WANTS PT. TO GO HOME NOT JAIL.
--- NOTE | 2020-06-19 16:40 | NUR ---
DYSPHAGIA KAYLEN COMPLETED. S/S OF ASPIRATION AT THIS TIME. RECOMMEND REGULAR SOLIDS, THIN LIQUIDS, AND PILLS WHOLE WITH LIQUIDS TOLERATED. POULTRY EVISCERATOR EDUCATED Pt ON RISKS AND CONSEQUENCES OF ASPIRATION. ALL QUESTIONS ANSWERED AT THIS TIME. POULTRY EVISCERATOR COORDINATED WITH NURSE ISIDRO. Addendum: 06/19/[address] MAKENZIE LOPEZ Amended: Links added.
[2020-06-19 17:23] VITALS: BP 112/66
--- NOTE | 2020-06-19 19:40 | NUR ---
INITIAL SW spoke with patient. She states she lives with daughter, Vilma Hurt. No home health but has PHC X 21 hours a week. Patient does not remember the name of the provider agency. DME: [facility]. Patient is able to complete ADL's independently but does not drive. Her daughter helps with transportation. PCP is Dr. Almas Falcon. Pharmacy is [facility] in [place]. Patient voiced no safety concerns for returning home. DCP is home. Addendum: 06/19/20 at 1943 by LESA SWEET SS Amended: Links added.
[2020-06-19 20:04] VITALS: BP 116/68
[2020-06-19] MEDS ORDERED: ATORVASTATIN CALCIUM 20 MG TABLET ONE (20:12)
[2020-06-19] MEDS: ATORVASTATIN CALCIUM 20 MG TABLET PO SCH (20:18)
--- NOTE | 2020-06-19 20:50 | NUR ---
MEDS SHIFT ASSESSMENT DONE, PLEASE REFER TO CHART. DUE MEDS ADMINISTERED, TOLERATED WELL. CALL LIGHT WITHIN REACH. WILL MONITOR PT.
[2020-06-19 23:58] VITALS: BP 117/54
--- NOTE | 2020-06-20 01:46 | NUR ---
ROUNDS PT RESTING WELL, FAIRLY ASLEEP. NO DISTRESS NOTED. KEPT UNDISTURBED FOR NOW. CALL LIGHT WITHIN REACH. WILL CONTINUE MONITOR PT.
[2020-06-20 03:43] VITALS: BP 103/56
--- NOTE | 2020-06-20 05:35 | NUR ---
NOTES PT RESTING WELL, HAD SLEPT IN LONG INTERVALS DURING THE SHIFT. NO CONCERNS VERBALIZED AT THIS TIME. FOR MORE CARE.
[2020-06-20 08:00] VITALS: BP 119/62
[2020-06-20] MEDS ORDERED: ASPIRIN 81MG TAB.CHEW ONE (08:06)
[2020-06-20] MEDS: ASPIRIN 325 MG TABLET PO SCH (08:07)
[2020-06-20] MEDS: ENOXAPARIN SODIUM 30 MG/0.3 ML SQ SCH (08:08)
[2020-06-20 12:21] VITALS: BP 125/75
--- NOTE | 2020-06-20 13:59 | NUR ---
PT WALKED PATIENT WITH WALKER OUTSIDE HER ROOM WITH WALKER AND SITTING UP IN CHAIR X 1 PERSON
--- NOTE | 2020-06-20 14:14 | NUR ---
FOLLOW UP COMPLETED. FERMENTER COORDINATED WITH NURSE ISIDRO. Pt TOLERATING DIET RECOMMENDATIONS WITH NO S/S OF ASPIRATION AT THIS TIME. CONTINUE WITH PLAN OF CARE TOLERATED. Addendum: 06/20/[address] MAKENZIE LOPEZ Amended: Links added.
--- NOTE | 2020-06-20 14:20 | NUR ---
DCP UPDATE: Call placed to pt's dtr Vilma to discuss Md order/recommendation for rehab @ dc. Informed Vilma that per PT notes pt is currently requiring min assist x2 for bed mobility,transfers and ambulation. Discussed various options including SNF vs IRU. Dtr declines either option. States she lives w pt and was previously assisting her as needed. Per Vilma, she will take pt home and have PCP setup HH. According to Vilma pt is requesting to be discharged home already. Informed Vilma that CM will update attending. Call placed to SYLVIA Pardo. Updated her on family declining sNF/rehab referral and requesting dc home. Per Char will round w Dr. Ruvalcaba and call pt's dtr. CM to continue to follow
--- NOTE | 2020-06-20 14:48 | NUR ---
2D-ECHO RADHA IS HER TO DO 2D-ECHO WITH BUBBLE STUDY
[2020-06-20 17:14] VITALS: BP 108/69
[2020-06-20 20:10] VITALS: BP 130/70
[2020-06-20] MEDS: ATORVASTATIN CALCIUM 20 MG TABLET PO SCH (22:08)
[2020-06-20 23:47] VITALS: BP 114/56
[2020-06-21 03:32] VITALS: BP 97/54
[2020-06-21 06:21] LABS: BASOPHILS % (AUTO) 0.7 % (0.0-5.0); EOSINOPHILS % (AUTO) 4.6 % (0.0-8.0); HEMATOCRIT 34.8 % (36-48); LYMPHOCYTES % (AUTO) 25.2 % (21.0-51.0); MEAN CORPUSCULAR HEMOGLOBIN 29.4 pg (27.0-33.0); MEAN CORPUSCULAR HGB CONC 32.5 g/dL (32.0-36.0); MEAN CORPUSCULAR VOLUME 90.6 fL (79-99); MONOCYTES % (AUTO) 8.3 % (3.0-13.0); PLATELET COUNT (AUTO) 168 K/uL (130-400); RED BLOOD CELL COUNT(AUTO) 3.84 MIL/uL (4.00-5.50); RED CELL DISTRIBUTION WIDTH 12.8 % (11.0-15.5); WHITE BLOOD COUNT (AUTO) 6.2 K/uL (4.8-10.8)
[2020-06-21 08:22] VITALS: BP 130/57
[2020-06-21] MEDS: ENOXAPARIN SODIUM 30 MG/0.3 ML SQ SCH (09:38)
[2020-06-21] MEDS ORDERED: ASPI-1197 PO (13:05)
[2020-06-21] MEDS ORDERED: ATOR10 PO (13:05)
[2020-06-21] MEDS ORDERED: CLOP75TA14 PO (13:05)
[2020-06-21 15:24] VITALS: BP 113/67
[2020-06-22] MEDS ORDERED: ASPIRIN 81MG TAB.CHEW PO SCH (09:00)
--- NOTE | 2020-06-22 15:12 | NUR ---
WILL SEND INFO TO PCP TO EXPEDITE HH Addendum: 06/22/20 at 1514 by MAGGI IBARRA RN CM Amended: Links added.
== END 2020-06-21 17:00 | disposition home or self-care (01) | DRG 66 ==
LOC: EDH 06:07 → OBSVTOIN 14:15 → EDHIP 14:15 → INTOOBSV 14:15 → OBSVTOIN 14:28 → 3CH 16:50 → UNDODISIN 06-19 16:15
PROVIDERS: ADMIT Hospitalist; ATTEND Hospitalist
DX: I63.81 Other cerebral infarction due to occlusion or stenosis of small artery (principal); I10 Essential (primary) hypertension; Z90.49 Acquired absence of other specified parts of digestive tract
CPT/HCPCS: 36415; 70450; 70496; 70498; 70551; 71045; 80048; 80061; 80076; 82550; 83036; 83880; 84443; 84484; 85025; 85610; 85730; 92610; 93005; 93306; 97039; G0378; J1650; Q9967

== ENCOUNTER 2021-03-27 21:05 | Emergency (ER) | payer MEDICARE ==
[~2021-03-27 21:05] MED LIST changes: -ALEN70TA2 PO; +ASPI-1197 PO; +ATOR10 PO; +CLOP75TA14 PO; -TRAM50TA4 PO
[2021-03-27] MEDS ORDERED: MECLIZINE HCL 25 MG TABLET ONE (21:36)
[2021-03-27 21:39] LABS: BASOPHILS % (AUTO) 0.6 % (0.0-5.0); EOSINOPHILS % (AUTO) 4.1 % (0.0-8.0); HEMATOCRIT 35.6 % (36-48); LYMPHOCYTES % (AUTO) 22.4 % (21.0-51.0); MEAN CORPUSCULAR HEMOGLOBIN 30.1 pg (27.0-33.0); MEAN CORPUSCULAR HGB CONC 33.1 g/dL (32.0-36.0); MEAN CORPUSCULAR VOLUME 90.8 fL (79-99); MONOCYTES % (AUTO) 6.8 % (3.0-13.0); NEUTROPHILS % (AUTO) 65.6 % (40.0-77.0); PLATELET COUNT (AUTO) 203 K/uL (130-400); RED BLOOD CELL COUNT(AUTO) 3.92 MIL/uL (4.00-5.50); RED CELL DISTRIBUTION WIDTH 13.3 % (11.0-15.5); WHITE BLOOD COUNT (AUTO) 6.6 K/uL (4.8-10.8)
[2021-03-27 21:41] LABS: APPEARANCE,URINE Clear (CLEAR); BILIRUBIN,URINE Negative (NEGATIVE); COLOR,URINE Yellow (YELLOW); GLUCOSE, URINE (UA) Negative (NEGATIVE); KETONES,URINE Negative (NEGATIVE); LEUKOCYTE ESTERASE ,URINE Moderate (NEGATIVE); NITRATE,URINE Negative (NEGATIVE); OCCULT BLOOD,URINE Negative (NEGATIVE); PROTEIN,URINE Negative (NEGATIVE)
[2021-03-27 21:51] LABS: CREATININE 1.3 mg/dL (0.5-1.5)
[2021-03-27 21:53] LABS: BACTERIA,URINE Moderate /HPF (None Seen); MUCUS,URINE Few LPF (None Seen); SQUAMOUS EPITHELIAL CELL,UR Moderate /HPF (0-2)
[2021-03-27 21:57] LABS: ALBUMIN 3.7 g/dL (3.5-5.0); BILIRUBIN,TOTAL 0.6 mg/dL (0.2-1.0); TOTAL PROTEIN, SERUM 7.4 g/dL (6.0-8.3)
[2021-03-27] MEDS ORDERED: CEFTRIAXONE SODIUM 1 GM ONE (22:13)
== END 2021-03-27 23:01 | disposition home or self-care (01) ==
LOC: EDH 21:05
DX: N30.00 Acute cystitis without hematuria (principal); J18.9 Pneumonia, unspecified organism; R73.9 Hyperglycemia, unspecified; R42 Dizziness and giddiness; I10 Essential (primary) hypertension; Z79.899 Other long term (current) drug therapy
CPT/HCPCS: 36415; 70450; 71045; 71250; 80053; 81001; 82550; 84484; 85025; 87088; 93005; 96374; 99285; J0696

== ENCOUNTER 2023-02-16 21:05 | Emergency (ER) | payer MEDICARE ==
[~2023-02-16 21:05] MED LIST changes: +CLOP-31 PO; -CLOP75TA14 PO
== END 2023-02-17 01:04 | disposition left against medical advice (07) ==
LOC: EDH 21:05
DX: R03.0 Elevated blood-pressure reading, without diagnosis of hypertension (principal); Z53.21 Procedure and treatment not carried out due to patient leaving prior to being seen by health care provider

== ENCOUNTER → 2024-04-02 | Outpatient (CLI) | payer MEDICARE | END | disposition home or self-care (01) | LOC: SHCH 13:00 | PROVIDERS: ATTEND Internal Medicine Cardiovascular Disease | DX: I87.2 Venous insufficiency (chronic) (peripheral) (principal); I73.9 Peripheral vascular disease, unspecified; I87.1 Compression of vein | CPT/HCPCS: 93925; 93970 ==

== ENCOUNTER → 2025-01-05 | Outpatient (CLI) | payer MEDICARE ==
[2025-01-05 13:04] LABS: ALBUMIN 4.2 g/dL (3.5-5.0); BILIRUBIN,TOTAL 0.5 mg/dL (0.2-1.0); CREATININE 1.5 mg/dL (0.5-1.0); POTASSIUM 4.3 mmol/L (3.5-5.1); TOTAL PROTEIN, SERUM 7.3 g/dL (6.0-8.3)
== END | disposition home or self-care (01) ==
LOC: LAB 08:44
PROVIDERS: ATTEND Internal Medicine Cardiovascular Disease
DX: E78.5 Hyperlipidemia, unspecified (principal)
CPT/HCPCS: 36415; 80053; 80061

== ENCOUNTER → 2025-01-08 | Outpatient (CLI) | payer MEDICARE ==
[2025-01-08] MEDS: REGADENOSON 0.4 MG/5 ML PF SYG IVP ONE (14:29)
== END | disposition home or self-care (01) ==
LOC: SHCH 08:04
PROVIDERS: ATTEND Internal Medicine Cardiovascular Disease
DX: I20.0 Unstable angina (principal)
CPT/HCPCS: 78452; 93017; J2785; A9500 ×2